=== PATIENT | female | born 1965 | race Caucasian/White ===

== ENCOUNTER 2019-06-14 19:33 | Observation (INO) | payer OTHER ==
--- NOTE | 2019-06-14 19:53 | ED Physician Documentation ---
PD HPI ALTERED MENTAL STATUS - Stated complaint Stated Complaint: SLURRED SPEECH, STUMBLING, CONFUSION - Chief complaint Chief Complaint: Neuro - History obtained from History obtained from: Patient, Family - History of Present Illness Quality / character: Confused, Disoriented Associated symptoms: No: Fever, Headache, Stiff neck, Dyspnea, Cough, NVD, Urinary sx, General weakness, Focal weakness, Seizure activity, Syncope Contributing factors: No: Anticoagulated, Diabetic, Cancer, COPD, New medication, Recent med change, Recent illness, Recent injury, Intoxicated, Substance abuse, Known psych illness, Known dementia Basline status: Alert and oriented X 3 - Additional information Additional information: Patient is accompanied by her family. They state the last seen normal around 11 AM was that she was tremulous and stumbling around the house today at around 2 PM. She went to scrap picker her daughter from the [id number] at approximately 5 or 6 PM. They state that she was talking "gibberish". They also state that she was drying on her face and head with make-up, they state that she looked "like a clown". They state that she was slurring her speech as well. Seems to be improving now. They state that she is still having trouble finding words. The patient states she feels like her speech is slow. She denies any alcohol use. Denies any drug use. No changes to her medications. She has a history of an acoustic neuroma, removed several years ago. Also history of a gastric bypass. Nothing makes this better or worse. Review of Systems Ten Systems: 10 systems reviewed and negative Constitutional: denies: Fever, Chills Ears: denies: Ear pain Nose: denies: Rhinorrhea / runny nose, Congestion Cardiac: denies: Chest pain / pressure Respiratory: denies: Cough, Wheezing GI: denies: Abdominal Pain, Nausea, Vomiting, Diarrhea Skin: denies: Rash Musculoskeletal: denies: Neck pain, Back pain Neurologic: denies: Focal weakness, Numbness, Headache PD PAST MEDICAL HISTORY - Past Medical History Past Medical History: Yes Endocrine/Autoimmune: HyPOthyroidism Psych: Depression, Anxiety - Past Surgical History Past Surgical History: Yes Other past surgical history: Acoustic neuroma removal - Present Medications Home Medications: Ambulatory Orders Medication Instructions Recorded Confirmed PARoxetine HCl [Paroxetine HCl] 06/14/19 buPROPion [Wellbutrin Sr] 06/14/19 - Allergies Allergies/Adverse Reactions: Allergies Allergy/AdvReac Type Severity Reaction Status Date / Time No Known Drug Allergies Allergy Verified 06/14/19 19:40 - Living Situation Living Situation: reports: With family Living Arrangement: reports: At home - Social History Does the pt have substance abuse?: No - Family History Family history: reports: Non contributory PD ED PE NORMAL - Vitals Vital signs reviewed: Yes - General General: Alert and oriented X 3, No acute distress, Well developed/nourished - HEENT HEENT: PERRL, Moist mucous membranes - Neck Neck: Supple, no meningeal sign - Cardiac Cardiac: RRR, Strong equal pulses - Respiratory Respiratory: No respiratory distress, Clear bilaterally - Abdomen Abdomen: Soft, Non tender, Non distended - Derm Derm: Warm and dry, No rash - Extremities Extremities: No edema, No calf tenderness / cord - Neuro Neuro: Alert and oriented X 3, educational psychology professor 2-12 intact, No motor deficit, No sensory deficit, Normal speech - Psych Psych: Normal mood, Normal affect NIHSS - Time Time: 19:47 - Level of Consciousness Level of consciousness: (0) Alert, Keenly responsive LOC Questions: (0) Answers both Q's correct LOC Commands: (0) Performs both correctly - Gaze Best Gaze: (0) Normal - Visual Visual: (0) No loss - Facial Palsy Facial Palsy: (0) Normal, symmetrical movement - Motor Arms (both separate) Motor Arm (right): (0) No drift Motor Arm (left): (0) No drift - Motor Legs (both separate) Motor Leg (right): (0) No drift Motor Leg (left): (0) No drift - Limb Ataxia Limb Ataxia: (0) Absent - Sensory Sensory: (0) Normal - Best Language Best Language: (0) No aphasia - Dysarthria Dysarthria: (0) Normal - Extinction and Inattention (formally neg Extinction and inattention: (0) No abnormality - Total Score/Results Total Score/Result: 0 Results - Vitals Vitals: Vital Signs - 24 hr 06/14/19 06/14/19 06/14/19 19:35 20:07 20:40 Temperature 36.7 C Heart Rate 107 H 70 62 Respiratory 22 15 16 Rate Blood Pressure 158/105 H 120/74 129/86 H O2 Saturation 98 100 95 Oxygen O2 Source Room air - EKG (time done) 2031 Rate: Rate (enter#) (61) Rhythm: NSR [place]: Normal Intervals: Normal OR QRS: Normal, LVH Ischemia: Normal ST segments - Labs Labs: Laboratory Tests 06/14/19 06/14/19 06/14/19 19:40 19:40 19:40 WBC 4.3 L RBC 4.53 Hgb 13.7 Hct 42.4 MCV 93.6 MCH 30.2 MCHC 32.3 RDW 12.9 Plt Count 192 MPV 10.1 Neut # (Auto) 2.3 Lymph # (Auto) 1.6 [place] # (Auto) 0.4 Eos # (Auto) 0.1 Baso # (Auto) 0.0 Absolute Nucleated RBC 0.00 Nucleated RBC % 0.0 Sodium 141 Potassium 3.6 Chloride 103 Carbon Dioxide 31 Anion Gap 7.0 BUN 14 Creatinine 0.9 Estimated GFR (MDRD) 65 L Glucose 96 Calcium 9.5 Total Bilirubin 0.6 AST 64 H ALT 72 H Alkaline Phosphatase 105 Total Protein 6.9 Albumin 3.8 Globulin 3.1 Albumin/Globulin Ratio 1.2 Lipase 37 TSH 3.74 Urine Color Urine Clarity Urine pH Ur Specific [place] Urine Protein Urine Glucose (UA) Urine Ketones Urine Occult Blood Urine Nitrite Urine Bilirubin Urine Urobilinogen Ur Leukocyte Esterase Ur Microscopic Review Urine Culture Comments Salicylates < 6.0 Urine Opiates Screen Ur Oxycodone Screen Urine Methadone Screen Ur Propoxyphene Screen Acetaminophen < 10 L Ur Barbiturates Screen Ur Tricyclics Screen Ur Phencyclidine Scrn Ur Amphetamine Screen U Methamphetamines Scrn U Benzodiazepines Scrn Urine Cocaine Screen U Cannabinoids Screen Ethyl Alcohol < 5.0 06/14/19 21:08 WBC RBC Hgb Hct MCV MCH MCHC RDW Plt Count MPV Neut # (Auto) Lymph # (Auto) [place] # (Auto) Eos # (Auto) Baso # (Auto) Absolute Nucleated RBC Nucleated RBC % Sodium Potassium Chloride Carbon Dioxide Anion Gap BUN Creatinine Estimated GFR (MDRD) Glucose Calcium Total Bilirubin AST ALT Alkaline Phosphatase Total Protein Albumin Globulin Albumin/Globulin Ratio Lipase TSH Urine Color YELLOW Urine Clarity CLEAR Urine pH 5.5 Ur Specific [place] 1.010 Urine Protein NEGATIVE Urine Glucose (UA) NEGATIVE Urine Ketones NEGATIVE Urine Occult Blood NEGATIVE Urine Nitrite NEGATIVE Urine Bilirubin NEGATIVE Urine Urobilinogen 0.2 (NORMAL) Ur Leukocyte Esterase NEGATIVE Ur Microscopic Review NOT INDICATED Urine Culture Comments NOT INDICATED Salicylates Urine Opiates Screen NEGATIVE Ur Oxycodone Screen NEGATIVE Urine Methadone Screen NEGATIVE Ur Propoxyphene Screen NEGATIVE Acetaminophen Ur Barbiturates Screen NEGATIVE Ur Tricyclics Screen NEGATIVE Ur Phencyclidine Scrn NEGATIVE Ur Amphetamine Screen NEGATIVE U Methamphetamines Scrn NEGATIVE U Benzodiazepines Scrn POSITIVE H Urine Cocaine Screen NEGATIVE U Cannabinoids Screen NEGATIVE Ethyl Alcohol - Rads (name of study) head CT Radiology: Prelim report reviewed, EMP read contemporaneously, See rad report (No acute intracranial abnormality is identified. 2. Mild periventricular regions of low attenuation, nonspecific. 3. Status post left temporal occipital craniotomy. ) PD MEDICAL DECISION MAKING - ED course Complexity details: reviewed results, re-evaluated patient, considered differential, d/w patient, d/w family, d/w farm consultant ED course: 53-year-old female presents to the emergency department with altered mental status earlier today. Had aphasia and dysarthria as well. Unclear etiology. Possible TIA? She appears to be back to her baseline currently. Given the significance of her symptoms, will place in the hospital for further work-up. Discussed the case with Dr. George, hospitalist who accepts. This document was made in part using voice recognition software. While efforts are made to proofread this document, sound alike and grammatical errors may occur. Departure - Departure Disposition: ED Place in Observation Clinical Impression: Aphasia Altered mental status Qualifiers: Altered mental status type: unspecified Qualified Code(s): R41.82 - Altered mental status, unspecified Condition: Stable
[2019-06-14 19:58] LABS: BASOPHILS % (AUTO) 0.5 %; EOSINOPHILS # (AUTO) 0.1 10^3/uL (0.0-0.7); EOSINOPHILS % (AUTO) 1.2 %; HGB - HEMOGLOBIN 13.7 g/dL (12.0-16.0); LYMPHOCYTES # (AUTO) 1.6 10^3/uL (1.5-3.5); LYMPHOCYTES % (AUTO) 36.7 %; MEAN CORPUSCULAR HEMOGLOBIN 30.2 pg (27.0-31.0); MEAN CORPUSCULAR HGB CONC 32.3 g/dL (32.0-36.0); MEAN CORPUSCULAR VOLUME 93.6 fL (81.0-99.0); MEAN PLATELET VOLUME 10.1 fL (7.9-10.8); MONOCYTES # (AUTO) 0.4 10^3/uL (0.0-1.0); MONOCYTES % (AUTO) 8.4 %; NEUTROPHILS # (AUTO) 2.3 10^3/uL (1.5-6.6); PLT - PLATELET COUNT 192 10^3/uL (130-450); RED BLOOD COUNT 4.53 10^6/uL (4.20-5.40); RED CELL DISTRIBUTION WIDTH 12.9 % (12.0-15.0); WHITE BLOOD COUNT 4.3 x10^3/uL (4.8-10.8)
[2019-06-14 20:07] LABS: ACETAMINOPHEN < 10 ug/mL (10-30); ALBUMIN 3.8 g/dL (3.2-5.5); ALBUMIN/GLOBULIN RATIO 1.2 (1.0-2.2); ALKALINE PHOSPHATASE 105 IU/L (42-121); ALT ALANINE AMINOTRANSFERASE 72 IU/L (10-60); AST ASPARTATE AMINOTRANSFERASE 64 IU/L (10-42); BILIRUBIN,TOTAL 0.6 mg/dL (0.2-1.0); BUN - BLOOD UREA NITROGEN 14 mg/dL (6-20); CALCIUM 9.5 mg/dL (8.5-10.3); CARBON DIOXIDE - CO2 31 mmol/L (21-32); CHLORIDE 103 mmol/L (101-111); CREATININE 0.9 mg/dL (0.4-1.0); GFR - MDRD 65 (>89); GLUCOSE 96 mg/dL (70-100); LIPASE 37 U/L (22-51); SALICYLATE < 6.0 mg/dL; SODIUM 141 mmol/L (135-145); TOTAL PROTEIN 6.9 g/dL (6.7-8.2)
--- NOTE | 2019-06-14 20:37 | CT Report ---
Reason: ALOC Procedure Date: 06/14/2019 Accession Number: [id number] / [id number] Procedure: CT - HEAD WO CPT Code: Final Report FULL RESULT: EXAM: CT HEAD EXAM DATE: 06/14/2019 08:10 PM. CLINICAL HISTORY: Altered level of consciousness. Unable to concentrate. Difficulty driving or following train of thought. COMPARISON: None. TECHNIQUE: Multiaxial CT images were obtained from the foramen magnum to the vertex. Reformats: Sagittal and coronal. IV contrast: None. In accordance with CT protocol optimization, one or more of the following dose reduction techniques were utilized for this exam: automated exposure control, adjustment of mA and/or KV based on patient size, or use of iterative reconstructive technique. FINDINGS: Parenchyma: No evidence of an acute vascular insult or acute parenchymal hemorrhage. Mild periventricular regions of low attenuation. No midline shift. No mass-effect. Extraaxial Spaces: Normal for age. No subdural or epidural collections identified. Ventricles: Normal in size and position. Sinuses and Orbits: Left mastoid effusion. Remainder of the paranasal sinuses and right mastoid air cells are clear. Bones: Changes are seen from left temporal occipital craniotomy. No acute fracture. No bony lesions. Other: Globes and orbits are unremarkable. IMPRESSION: 1. No acute intracranial abnormality is identified. 2. Mild periventricular regions of low attenuation, nonspecific. 3. Status post left temporal occipital craniotomy. RADIA
[2019-06-14] MEDS ORDERED: SODIUM CHLORIDE 0.9% 1,000 ML IV ONE (20:49)
[2019-06-14 21:25] LABS: MUDS CUTOFF CONCENTRATIONS CUTOFF CONC BELOW:
[2019-06-14 21:28] LABS: BILIRUBIN,URINE NEGATIVE (NEGATIVE); CLARITY,URINE CLEAR (CLEAR); GLUCOSE, URINE (UA) NEGATIVE (NEGATIVE); KETONES,URINE (UA) NEGATIVE (NEGATIVE); LEUKOCYTE ESTERASE, URINE NEGATIVE (NEGATIVE); NITRITE,URINE NEGATIVE (NEGATIVE); OCCULT BLOOD,URINE NEGATIVE (NEGATIVE); PH,URINE 5.5 PH (5.0-7.5); PROTEIN,URINE NEGATIVE (NEGATIVE); UROBILINOGEN,URINE 0.2 (NORMAL) E.U./dL (NORMAL)
[2019-06-14 21:43] LABS: AMPHETAMINE SCREEN,URINE NEGATIVE (NEGATIVE); BENZODIAZEPINES SCREEN, URINE POSITIVE (NEGATIVE); COCAINE SCREEN URINE NEGATIVE (NEGATIVE); METHADONE SCREEN, URINE NEGATIVE (NEGATIVE); METHAMPHETAMINES SCREEN, URINE NEGATIVE (NEGATIVE); OPIATE SCREEN, URINE NEGATIVE (NEGATIVE); OXYCODONE SCREEN, URINE NEGATIVE (NEGATIVE); PROPOXYPHENE SCREEN, URINE NEGATIVE (NEGATIVE); TRICYCLIC ANTIDEPRESSANT,URINE NEGATIVE (NEGATIVE)
[2019-06-14] MEDS ORDERED: SODIUM CHLORIDE FLUSH 0.9% 10 ML SYRINGE IVP PRN ×2 (22:34→22:57)
--- NOTE | 2019-06-14 22:52 | HISTORY & PHYSICAL EXAMINATION ---
Chief Complaint - Chief Complaint Chief Complaint: slurred speech History of Present Illness - Admitted From Admitted From:: [facility] - History Obtained From Records Reviewed: yes History obtained from: patient and - History of Present Illness HPI Comment/Other: Patient is a 53 y/o female who was brought to the ED by her spouse after she had an episode of erratic behavior/acting strangely/ stumbling and slurred speech.This was around 2pm. It is reported by her who is at bedside that they had just had an arguement shortly before that. She was last normal around 11am. Around 6pm she went to picker their daughter and on the drive back the content of her speech was nonsensical. She kept addressing the daughter by another daughter's name and at times her speech was garbled. She was also driving erratically so her daughter asked her to pullman conductor. She asked for a make-up and used it to draw all over her face. Upon arrival to the ED she still had some slurred speech and an unsteady gait but this resolved shortly afterwards. During my exam, she had no neurological symptoms, however she complained of double-vision and a frontal headache. She denied chest pain, dyspnea, abdominal pain, nausea, vomiting fever or chills. She denied any weakness in any of her extremities. She has history of acoustic neuroma for which she underwent a resection. However a sheath on the facial nerve was left in place for concern of potential damage to the nerve if an attempt was made to remove it. The vestibular nerve was also removed. She gets frequent MRI's of the brain for check up. However, her last MRI was more than a year ago. Work up in the ED included a CT scan of the brain which was unremarkable. Toxicology was positive for benzodiazepine however it is questioned if this a cross reactant. The patient maintains that she has not taken any benzodiazepine. She is on paxil, wellbutrin and synthroid only. She is being admitted for further work up. History - Past Medical History Endocrine/Autoimmune: reports: HyPOthyroidism Psych: reports: Depression, Anxiety - Past Surgical History Other past surgical history: Acoustic neuroma resection. Gastric bypass revision. Breast augmentation. rectal tear repair - Family & Social History Family History Comment/Other: mother: CVA (hemorrhagic), fibromyalgia, bipolar disorder. father: from mesothelioma, DM. There is a significant family history of alcoholism. Living arrangement: At home Living Situation: With family Social History Notes: She lives with her family. She denies alcohol, tobacco or illicit drug use - POLST Patient has POLST: No POLST Status: Full Code Meds/Allgy - Home Medications Home Medications: Ambulatory Orders Medication Instructions Recorded Confirmed Levothyroxine [Synthroid] 2 tab 06/14/19 PARoxetine HCl [Paroxetine HCl] 1 tab 06/14/19 buPROPion [Wellbutrin Sr] 300 mg 06/14/19 - Allergies Allergies/Adverse Reactions: Allergies Allergy/AdvReac Type Severity Reaction Status Date / Time No Known Drug Allergies Allergy Verified 06/14/19 19:40 Review of Systems - Constitutional Constitutional: denies: Fatigue, Fever, Chills - Eyes Eyes: reports: Dipolpia. denies: Pain, Blurred vision, Vision loss - Ears, Nose & Throat Ears, Nose & Throat: denies: Tinnitus, Vertigo, Sore throat - Cardiovascular Cariovascular: denies: Irregular heart rate, Palpitations, Chest pain, Edema, Lightheadedness, Syncope, Exertional dyspnea - Respiratory Respiratory: denies: Cough, Sputum production, Wheezing, Hemoptysis, Orthopnea, SOB at rest, SOB with exertion - Gastrointestinal Gastrointestinal: denies: Abdominal pain, Abdominal distention, Constipation, Diarrhea, Nausea, Vomiting, Coffee grounds emesis, Reflux/heartburn - Genitourinary Genitourinary: denies: Dysuria, Frequency, Urgency, Hematuria, Incontinence, Flank pain - Musculoskeletal Musculoskeletal: denies: Muscle pain, Back pain, Muscle aches, Stiffness - Integumentary Integumentary: denies: Rash, Pruritis, Lesions, Dryness - Neurological Neurological: reports: Slurred speech, Other (confused). denies: General weakness, Focal weakness, Headache, Dizziness, Numbness - Psychiatric Psychiatric: reports: Depression, Anxiety - Hematologic/Lymphatic Hematologic/Lymphatic: denies: Anemia, Bruising, Petechiae Prior Level of Functionality: She is independent of activities of daily living Exam - Vital Signs Vital Signs: Vital Signs x48h Temp Pulse Resp BP Pulse Ox 06/14/19 22:43 63 16 117/81 H 06/14/19 22:00 82 24 121/76 06/14/19 20:40 62 16 129/86 H 95 06/14/19 20:07 70 15 120/74 100 06/14/19 19:35 36.7 C 107 H 22 158/105 H 98 - Physical Exam General Appearance: positive: No acute distress, Alert. negative: Lethargic Eyes Bilateral: positive: Normal inspection, PERRL, EOMI ENT: positive: ENT inspection nml, No signs of dehydration Neck: positive: Nml inspection, No JVD, Trachea midline Respiratory: positive: Chest non-tender, No respiratory distress, Breath sounds nml. negative: Wheezes, Rales, Rhonchi Cardiovascular: positive: Regular rate & rhythm, No murmur Abdomen: positive: Non-tender, Nml bowel sounds, No distention. negative: Guarding, Rebound Back: positive: Nml inspection Skin: positive: Color nml, No rash, Warm, Dry Extremities: positive: Non-tender, Full ROM, Nml appearance, No pedal edema Neurologic/Psychiatric: positive: Oriented x3, Motor nml, Sensation nml, Mood/affect nml. negative: Weakness, Facial droop, Slurred/abnml speech Conclusion/Plan - Problem List (1) TIA (transient ischemic attack) Conclusion/Plan: CT head w/o contrast was negative Neuro check q4hrs MRI brain w/o contrast, 2D echo and carotid dopplers ordered. Lipid panel, HgA1c pending Administer full dose aspirin (2) Hypothyroidism Conclusion/Plan: Resume synthroid once verified (3) Depression Conclusion/Plan: On paxil and wellbutrin. Will continue once verified - Lab Results Fish Bones: 06/14/19 19:40 06/14/19 19:40 Core Measures - Anticipated LOS I expect patient to be DC'd or transferred within 96 hours.: Yes - DVT/VTE - Prophylaxis VTE/DVT Device ordered at admit?: Yes
[2019-06-14] MEDS ORDERED: SODIUM CHLORIDE 0.9% 1,000 ML IV SCH (23:00)
[2019-06-15] MEDS: SODIUM CHLORIDE FLUSH 0.9% 10 ML SYRINGE IVP SCH ×3 (00:16→18:08)
[2019-06-15] MEDS: SODIUM CHLORIDE 0.9% 1,000 ML IV SCH ×2 (00:23→09:57)
[2019-06-15] MEDS ORDERED: SODIUM CHLORIDE FLUSH 0.9% 10 ML SYRINGE IVP SCH (01:00)
[2019-06-15] MEDS ORDERED: ASPIRIN 325 MG TABLET PO SCH (08:00)
[2019-06-15] MEDS ORDERED: LORazepam 2 MG/ML VIAL IVP PRN (08:10)
[2019-06-15] MEDS ORDERED: LORazepam 2 MG/ML VIAL IVP STA ×2 (11:19→15:57)
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
[2019-06-15] MEDS ORDERED: GADOBUTROL 10 MMOL/10 ML VIAL ONE (15:56)
[2019-06-15] MEDS ORDERED: GADOBUTROL 10 MMOL/10 ML VIAL IVP ONE (16:52)
--- NOTE | 2019-06-15 17:45 | MRI Report ---
Reason: garbled speech Procedure Date: 06/15/2019 Accession Number: [id number] / [id number] Procedure: MRI - Brain W/WO CPT Code: Final Report FULL RESULT: EXAM: MRI BRAIN AND INTERNAL AUDITORY CANAL (IAC),WITHOUT AND WITH CONTRAST. EXAM DATE: 06/15/2019 05:07 PM. CLINICAL HISTORY: 53-year-old presenting with garbled speech. Evaluate for intracranial pathology. COMPARISON: CT head 06/14/2019. TECHNIQUE: Multiplanar, multisequence T1-weighted and fluid-sensitive MRI sequences of the brain and IACs were performed before and after administration of intravenous contrast. Other: None. IV Contrast: 10 cc Gadavist. FINDINGS: Brain Volume: Normal for age. Parenchyma/Dura: No acute parenchymal hemorrhage, mass, or midline shift. Minimal patchy T2/FLAIR signal hyperintensity seen. No areas of restricted diffusion seen to suggest acute infarct. No abnormal areas of parenchymal chronic hemosiderin deposition. No abnormal enhancement. Internal Auditory Canals (IACs): Postsurgical changes of left retrosigmoid craniectomy. There are postsurgical changes involving the left mastoid air cells and middle ear cavity. The left internal auditory canal and cisternal segments of the left 7th and 8th cranial nerves are poorly visualized likely due to postsurgical change. The right cisternal segments of the7th and 8th cranial nerves appear normal. Right cochlea and vestibular apparatus appear normal. Ventricles/Cisterns: Postsurgical changes of left retrosigmoid craniectomy. No definite abnormal extra-axial fluid collection/mass seen. Ventricles appear age-appropriate. Orbits: Symmetric and unremarkable. Sella Turcica: The pituitary gland, cavernous sinuses, suprasellar cistern and optic chiasm are unremarkable. Vasculature: Normal signal flow void is seen in the major arterial structures at the skull base. There is moderate to severe narrowing of the left sigmoid sinus. Otherwise, dural sinuses appear patent. Sinuses: Visualized paranasal sinuses appear clear. There are surgical changes involving the left mastoid air cells and left middle ear cavity with soft tissue fullness seen within the remaining visualized mastoid air cells. Bones: Postsurgical changes as detailed above. Other: None. IMPRESSION: 1. Postsurgical changes of left retrosigmoid craniectomy. 2. The left cochlea and vestibular apparatus as well as cisternal segments of the left 7th and 8th cranial nerves are poorly visualized, likely postsurgical. Clinical correlation with patient's history would be of use. 3. No definite inflammatory process or mass seen involving the right internal auditory canal or posterior fossa. 4. No acute infarct, acute intracranial hemorrhage, mass, hydrocephalus, or midline shift. No abnormal postcontrast enhancement. 5. Minimal white matter changes seen that appear chronic, suggesting potential sequela of chronic small-vessel ischemic disease. [facility]
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
[2019-06-15 18:36] VITALS: BP 136/78
== END 2019-06-15 18:40 | disposition home or self-care (01) ==
LOC: ED 19:33 → MS2 22:34 → ED 22:54
PROVIDERS: ADMIT Internal Medicine; ATTEND Specialist
DX: R47.1 Dysarthria and anarthria (principal); R27.0 Ataxia, unspecified; R48.2 Apraxia; E03.9 Hypothyroidism, unspecified; F32.9 Major depressive disorder, single episode, unspecified; R41.82 Altered mental status, unspecified; R51 Headache; H53.2 Diplopia; F41.9 Anxiety disorder, unspecified
CPT/HCPCS: 36415; 70450; 70553; 80320; 80329; 81003; 83690; 93005; 96374; 96375; 97161; 99285; A9270; A9585; G0378; J2060; 80053; 80306; 80307; 81001; 84443; 85025; 87086; 96361

== ENCOUNTER 2019-09-23 14:18 | Outpatient (CLI) | payer OTHER | END 2019-09-23 14:19 | disposition home or self-care (01) | LOC: COV 14:18 | PROVIDERS: ATTEND Family Medicine | DX: R05 Cough (principal); R50.9 Fever, unspecified | CPT/HCPCS: 81599 ==

== ENCOUNTER 2020-02-23 09:26 | Outpatient (CLI) | payer MEDICAID ==
[2020-02-23 10:21] LABS: BASOPHILS % (AUTO) 0.9 %; EOSINOPHILS # (AUTO) 0.1 10^3/uL (0.0-0.7); EOSINOPHILS % (AUTO) 1.8 %; HGB - HEMOGLOBIN 13.2 g/dL (12.0-16.0); LYMPHOCYTES # (AUTO) 0.8 10^3/uL (1.5-3.5); LYMPHOCYTES % (AUTO) 24.5 %; MEAN CORPUSCULAR HEMOGLOBIN 31.6 pg (27.0-31.0); MEAN CORPUSCULAR VOLUME 95.7 fL (81.0-99.0); MEAN PLATELET VOLUME 10.3 fL (7.9-10.8); MONOCYTES # (AUTO) 0.3 10^3/uL (0.0-1.0); MONOCYTES % (AUTO) 7.8 %; NEUTROPHILS # (AUTO) 2.2 10^3/uL (1.5-6.6); NEUTROPHILS % (AUTO) 64.7 %; PLT - PLATELET COUNT 157 10^3/uL (130-450); RED BLOOD COUNT 4.18 10^6/uL (4.20-5.40); RED CELL DISTRIBUTION WIDTH 12.4 % (12.0-15.0); WHITE BLOOD COUNT 3.4 x10^3/uL (4.8-10.8)
[2020-02-23 10:39] LABS: % IRON SATURATION 22 % (20-50); ALBUMIN/GLOBULIN RATIO 1.1 (1.0-2.2); ALKALINE PHOSPHATASE 88 IU/L (42-121); ALT ALANINE AMINOTRANSFERASE 73 IU/L (10-60); AST ASPARTATE AMINOTRANSFERASE 69 IU/L (10-42); BILIRUBIN,DIRECT 0.2 mg/dL (0.1-0.5); BILIRUBIN,TOTAL 0.5 mg/dL (0.2-1.0); BUN - BLOOD UREA NITROGEN 18 mg/dL (6-20); CALCIUM 8.8 mg/dL (8.5-10.3); CARBON DIOXIDE - CO2 29 mmol/L (21-32); CHLORIDE 104 mmol/L (101-111); CHOL/HDL RATIO 1.7 (<4.4); CHOLESTEROL 126 mg/dL; CREATININE 0.7 mg/dL (0.4-1.0); GLUCOSE 94 mg/dL (70-100); HDL CHOLESTEROL 73 mg/dL; IRON 68 ug/dL (28-170); SODIUM 139 mmol/L (135-145); TOTAL IRON BINDING CAPACITY 314 ug/dL (250-450); TOTAL PROTEIN 5.7 g/dL (6.7-8.2); TRANSFERRIN 224 mg/dL (192-382)
[2020-02-25 23:05] LABS: SMOOTH MUSCLE IGG AB <20 U
== END 2020-02-23 09:27 | disposition home or self-care (01) ==
LOC: LAB 09:26
PROVIDERS: ATTEND Physician Assistant
DX: R94.5 Abnormal results of liver function studies (principal)
CPT/HCPCS: 36415; 80053; 80061; 80076; 81599; 82103; 82248; 82728; 83516; 83540; 83721; 84466; 85025; 86038; 86039; 86255; 86317; 86708

== ENCOUNTER 2020-03-23 11:08 | Outpatient (CLI) | payer MEDICAID ==
[2020-03-23 11:32] LABS: BILIRUBIN,DIRECT 0.1 mg/dL (0.1-0.5); BILIRUBIN,TOTAL 0.7 mg/dL (0.2-1.0); TOTAL PROTEIN 5.8 g/dL (6.7-8.2)
== END 2020-03-23 11:09 | disposition home or self-care (01) ==
LOC: LAB 11:08
PROVIDERS: ATTEND Physician Assistant
DX: R94.5 Abnormal results of liver function studies (principal); R10.13 Epigastric pain
CPT/HCPCS: 36415; 80076